=== PATIENT | male | born 1955 | race Caucasian/White ===

== ENCOUNTER 2022-07-21 19:23 | Emergency (ER) | payer BC, MEDICARE ==
[2022-07-21] MEDS ORDERED: Tetracaine HCl/PF 0.5% 4 ML Bottle EYEBOTH ONE (19:25)
[2022-07-21] MEDS ORDERED: Erythromycin Base 0.5% Ophth Oint 1 GM Tube EYELF ONE (19:36)
== END 2022-07-21 20:24 | disposition home or self-care (01) ==
LOC: MW.ED 19:23
DX: H10.022 Other mucopurulent conjunctivitis, left eye (principal); Z79.899 Other long term (current) drug therapy
CPT/HCPCS: 99283; A9270; 99282; J3490